=== PATIENT | male | born 1930 | race Caucasian/White ===

== ENCOUNTER 2016-11-22 10:41 | Day surgery (SDC) | payer OTHER ==
[~2016-11-22 10:41] MED LIST: CHONDR SU A NA/HYALUR INTRAOC KIT (SURGICARE) ONE; KETOROLAC TROMETHAMINE 0.45% 4 DROP/0.4 ML DROPERETTE OS PRN; LIDOCAINE 1% INJ-PF (10 MG/ML) 30 ML SDV ONE; MIDAZOLAM 2 MG/2 ML INJ ONE; PHENYLEPHRINE/KETOROLAC 1%-0.3% 4 ML VIAL ONE
[2016-11-22] MEDS: BESIFLOXACIN HCL 0.6% OPH SUSP 5 ML BOTTLE OS PRN ×3 (10:59→12:09)
[2016-11-22] MEDS: TROPICAMIDE 1% OPH SOLN 3 ML OS PRN ×3 (10:59→11:19)
[2016-11-22] MEDS: CYCLOPENTOLATE 0.2%/PHENYLEPHRINE 1% OPH SOLN 2 ML OS PRN ×3 (10:59→11:19)
[2016-11-22] MEDS: TETRACAINE HCL 0.5% OPH SOLN 2 ML OS PRN ×3 (11:00→11:33)
--- NOTE | 2016-11-22 20:34 | [facility] OPERATIVE REPORT E ---
[facility] Operative Report NAME: ARTEM CARPENTER AGE: 86Y DATE OF SURGERY: 11/22/2016 ROOM: PREOPERATIVE DIAGNOSES: 1. Cataract, left eye. 2. Pupil miosis. POSTOPERATIVE DIAGNOSES: 1. Cataract, left eye. 2. Pupil miosis. OPERATION: Complex cataract extraction with use of a Malyugin ring due to pupil miosis. SURGEON: NAKITA WILLAMS M.D. ANESTHESIA: Topical. PROCEDURE: After obtaining appropriate consent, the patient's left eye was prepped and draped in sterile fashion as well as the surgeon in a sterile manner and cataract surgery was started. First a paracentesis blade was used to make a small side-port incision. Viscoelastic was used to inflate the anterior chamber. Next a 2.4 mm incision was made with the paracentesis blade. A continuous capsulorrhexis incision was made using a cystotome and Utrata forceps. Following this hydrodissection was carried out to make the lens fully loose and mobile and it was rotated 90 degrees. Following this, a xxvdhz-sav-hmlsrzo technique was used to phacoemulsify the lens with a CDE of 12.41. The remaining cortex was removed with irrigation/aspiration. Provisc was instilled into the capsular bag to inflate the bag. A SN6AT4, 22.5 diopter lens rotated to 172 degrees. The remaining viscoelastic material was removed with irrigation/aspiration. Following this, a 10-0 nylon suture was used to close the incision and it was found to be watertight. Vigamox was instilled in the eye and a protective shield was placed over the eye. The patient returned to the postoperative recovery in stable condition. Prior to making the capsulorrhexis, a Malyugin ring was inserted due to pupil miosis. This was removed at the end of the case. DICTATING PHYSICIAN: NAKITA WILLAMS M.D. [id number] PHY#: [id number] 2013 ID: [id number] JOB#: [id number] ACCT: [id number] cc:NAKITA WILLAMS M.D. >
--- NOTE | 2016-11-22 21:07 | [facility] DISCHARGE SUMMARY E ---
[facility] Discharge Summary NAME: ARTEM CARPENTER AGE: 86Y ADMITTED: 11/22/2016 DISCHARGED: 11/22/2016 HOSPITAL COURSE: This is an 86-year-old male who underwent complex cataract extraction with insertion of a Toric IOL and use of a Malyugin ring. DIAGNOSES: 1. Cataract, left eye. 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 INDICATIONS: The patient underwent surgery because he was having trouble seeing words on the TV and reading small print. DISCHARGE INSTRUCTIONS: He should be on a regular diet. No bending at his waist. No heavy lifting. He should use his Besivance, Ilevro, and Durezol at 3 p.m. and 8 p.m. and sleep with a rigid shield. I will see him for his 1 day postoperative tomorrow. DICTATING PHYSICIAN: NAKITA WILLAMS M.D. [id number] PHY#: [id number] 2013 ID: [id number] JOB#: [id number] ACCT: [id number] cc:NAKITA WILLAMS M.D. >
== END 2016-11-22 13:11 | disposition home or self-care (01) ==
LOC: SC 10:41
PROVIDERS: ATTEND Internal Medicine
PROC: 08RK3JZ Replacement of Left Lens with Synthetic Substitute, Percutaneous Approach (ICD-10-PCS; principal; 2016-11-22 11:30)
DX: H25.813 Combined forms of age-related cataract, bilateral (principal); H57.03 Miosis; H17.11 Central corneal opacity, right eye; I10 Essential (primary) hypertension; M19.90 Unspecified osteoarthritis, unspecified site; E03.9 Hypothyroidism, unspecified; F17.210 Nicotine dependence, cigarettes, uncomplicated; K21.9 Gastro-esophageal reflux disease without esophagitis; Z79.82 Long term (current) use of aspirin; Z79.899 Other long term (current) drug therapy; Z79.84 Long term (current) use of oral hypoglycemic drugs; Z85.72 Personal history of non-Hodgkin lymphomas; Z88.6 Allergy status to analgesic agent
CPT/HCPCS: 66982; 82962; V2787; J2250; J3490 ×2; C9447; 142